=== PATIENT | female | born 1975 ===

== ENCOUNTER 2023-07-21 09:30 | Outpatient (CLI) | payer OTHER, SELFPAY ==
--- NOTE | 2023-07-21 09:41 | XR_ITS ---
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 FINDINGS: 5 nonrib-bearing lumbar vertebral bodies. Vascular calcification. Mild to moderate facet arthropathy lower lumbar spine. No acute appearing compression fractures. Mild disc space narrowing L4-L5 and L5- S1. Slight anterolisthesis L4 on L5. A few pelvic phleboliths. Mild degenerative arthritis sacroiliac joints. IMPRESSION: 1. Mild lumbar curve. No acute compression. 2. Slight anterolisthesis L4 on L5. 3. Mild disc base narrowing L4-L5 and L5-S1. 4. Mild to moderate facet arthropathy L4-L5 and L5-S1. 5. Mild degenerative arthritis sacroiliac joints.
== END 2023-07-21 09:31 | disposition home or self-care (01) ==
LOC: RAD 09:39
PROVIDERS: Visit Provider Dermatology
DX: M54.50 Low back pain, unspecified (principal); M48.061 Spinal stenosis, lumbar region without neurogenic claudication; M47.816 Spondylosis without myelopathy or radiculopathy, lumbar region; M47.817 Spondylosis without myelopathy or radiculopathy, lumbosacral region
CPT/HCPCS: 72100

== ENCOUNTER 2023-08-02 23:35 | Emergency (ER) | payer SELFPAY ==
[2023-08-02 23:47] VITALS: BP 188/104; PULSE 72; RESP 16; TEMP 36.7; O2SAT 95
--- NOTE | 2023-08-03 00:42 | XRR_ITS ---
PROCEDURE INFORMATION: Exam: XR Abdomen Exam date and time: 08/03/2023 12:55 AM Age: 48 years old Clinical indication: Abdominal pain; Prior surgery; Surgery date: 6+ months; Surgery type: Hysterectomy; Patient HX: Diffuse abd pain with constipation; Additional info: Abd pain, constipation TECHNIQUE: Imaging protocol: Radiologic exam of the abdomen. Views: Frontal supine view of the abdomen. 1 View. COMPARISON: CR XR lumbar spine 2-3V* [id number] 07/21/2023 9:47 AM FINDINGS: Gastrointestinal tract: Nonspecific bowel-gas pattern without evidence of large or small bowel obstruction. Intraperitoneal space: Right upper quadrant clips are noted. Bowel sutures are seen in the left upper quadrant. Bones/joints: Unremarkable. Other findings: No evidence of increased stool. XR/XR KUB portable [id number] IMPRESSION: No acute findings.
[2023-08-03 01:08] VITALS: RESP 18
[2023-08-03] MEDS: HYDROmorphone 1 mg/mL INJ 1 mL 2 MG IM (01:08)
[2023-08-03] MEDS: ondansetron 2 mg/ML SDV 2 mL 4 MG IM (01:08)
[2023-08-03 01:12] VITALS: RESP 18; O2SAT 97
--- NOTE | 2023-08-03 01:12 | W.ED.ABDPA2 ---
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 This is after a traumatic injury in the past. She states that she takes hydrocodone for chronic pain, and this seems to also help her get, because it relieves spasm. She has been out of her hydrocodone, and has not been able to pass gas or have a bowel movement. She is in significant pain to her belly. She has used suppositories, glycerin once without relief. She is unable to perform enemas to this stenosis. Associated Symptoms: Reports bloating, constipation, GI cramping and nausea; Denies chills, fever(s) and vomiting Review of Systems Const: Denies: fever(s) or chills ENMT: Denies: throat pain Resp: Denies: dyspnea GI: Reports: abdominal pain, nausea, constipation, bloating and GI cramping; Denies: vomiting : Denies: flank pain Musc: Reports: back pain Physical Exam Const: COMMON NORMALS: no acute distress GENERAL APPEARANCE: cooperative; not ill appearing and not frail appearing HENMT: COMMON NORMALS: normocephalic, atraumatic and Normal external nose present HEAD & SCALP: normocephalic and atraumatic FACE & SINUS: normal facial exam and face symmetric NOSE: Normal external nose present Eye: COMMON NORMALS: Equal, round and reactive pupils present and EOMs intact bilaterally PUPIL: Yes Equal, round and reactive pupils present Neck/C-Spine: GENERAL: Yes trachea midline Chest: CHEST: Yes Symmetrical chest wall rise Resp: COMMON NORMALS: normal respiratory effort, No retractions, No use of accessory muscles and clear to auscultation bilaterally AUSCULTATION: clear to auscultation bilaterally Cardio: COMMON NORMALS: regular rate and regular rhythm RATE: regular rate RHYTHM: regular rhythm GI: INSPECTION: Yes abdominal distension (Mild) PALPATION: Yes Tenderness to palpation present (GI) Extremity: COMMON NORMALS: no pedal edema Neuro: PEYMAN COMA SCALE: document GCS findings Peyman coma scale eye opening: Spontaneous [place] coma scale verbal response: Orientated Peyman coma scale motor response: Obey commands Peyman coma scale total score: 15 SENSORY EXAM: Yes extremities (intact) Psych: COMMON NORMALS: speech normal SPEECH: Yes normal speech Skin: COMMON NORMALS: no rashes or lesions noted GENERAL SKIN EXAM: no rashes or lesions noted Course Vital Signs: Vital signs: Vital Signs Temperature 98.1 F 08/02/23 23:47 Pulse Rate 89 08/03/23 02:19 Respiratory Rate 18 08/03/23 02:19 Blood Pressure 142/71 08/03/23 02:19 Pulse Oximetry 97 08/03/23 02:19 Oxygen Delivery Me thod Room Air 08/03/23 01:12 MDM - Abdominal Pain Medical Decision Making Patient has a KUB that is not remarkable. She was given an injection of hydromorphone. She states that she can feel my bowels moving now . She wishes to go home. She will be allowed home to return for any worsening of her symptoms. Lab Data Labs/Radiology: Radiology Impressions KUB X-Ray 08/03/23 00:42 IMPRESSION: No acute findings. All radiology interpretation(s) finalized by discharge Discharge Plan Discharge Patient Disposition: Home Clinical Impression: Abdominal spasms Condition: Stable Discharge Orders: Discharge ED (Routine); Ordered 08/03/23 Ordered By: Vance Arcos Patient Instructions: Constipation (ED), Abdominal Pain (ED), Opioid Safety, Pain Management Activity Restrictions/Additional Instructions: Return for fever, vomiting, blood in the stool, other concerning symptoms. Coding Level of Care Code ED Drilling Machine Operator for Elizabeth Peoples
[2023-08-03 02:19] VITALS: BP 142/71; PULSE 89; RESP 18; O2SAT 97
== END 2023-08-03 02:22 | disposition home or self-care (01) ==
PROVIDERS: Emergency Provider Emergency Medicine
DX: R25.2 Cramp and spasm (principal)
CPT/HCPCS: 74018; 96372; 99284; J1170; J2405